=== PATIENT | male | born 1990 | race Caucasian/White ===

== ENCOUNTER → 2018-05-17 | Outpatient (CLI) | payer OTHER ==
[~2018-05-17] MED LIST: GADOBENATE DIMEGLUMINE 1 ML IV ONE; IOPAMIDOL 300 MG/ML 15ML VIAL IT ONE; LIDOCAINE HCL 2% LOCAL 20 ML VIAL ONE
--- NOTE | 2018-05-17 11:38 | Diagnostic Imaging Report ---
TECHNIQUE: Magnetic resonance arthrogram of the right SHOULDER was performed after inta-articular injected contrast. COMPARISON: None available. HISTORY: Pain FINDINGS: MUSCLES AND TENDONS: Rotator Cuff: Tendons: Small interstitial tear of the anterior supraspinatus axial image 17 series 3. Muscles: No focal muscle atrophy. Biceps Tendon: The long head of the biceps tendon is intact and within the intertubercular groove. GLENOHUMERAL JOINT: Glenoid Labrum: No discrete labral tear. In the anterosuperior quadrant a sublabral foramen. Articular Cartilage: No focal defect. AC JOINT AND ACROMION: No hypertrophic degenerative changes of the acromioclavicular joint. The acromion is unremarkable. BONE: Cystic change at the rotator cuff insertion of the posterior humerus. No acute fracture. SOFT TISSUES: Otherwise, the soft tissues appear unremarkable. IMPRESSION: Focal interstitial tear anterior supraspinatus tendon at the humeral insertion. Intact labrum. Signed by: Dr. Gregg Tejada M.D. on 05/17/2018 11:35 AM
--- NOTE | 2018-05-17 14:19 | Diagnostic Imaging Report ---
PROCEDURE:INJECTION ARTHROGRAM SHOULDER COMPARISON:None. INDICATIONS:Shoulder pain; possible rotator cuff tear FINDINGS:Local anesthesia was obtained with 1% Xylocaine after sterile preparation. Under fluoroscopic guidance a 22 gauge spinal needle was placed into the glenohumeral space. A small amount of Isovue-300 M was injected confirming the needle in the joint space. Two images were performed. Following this approximately 8 cc of a mixture of Multihance and normal saline was injected. CONCLUSION:Successful fluoroscopy guided right shoulder arthrogram prior to MRI. Anuel Ovalle D.O. Dictated by: Anuel Ovalle D.O. on 05/17/2018 at 14:23 Electronically approved by: Anuel Ovalle D.O. on 05/17/2018 at 14:23
== END ==
LOC: DX 07:51
PROVIDERS: ATTEND Specialist
DX: S46.011A Strain of muscle(s) and tendon(s) of the rotator cuff of right shoulder, initial encounter (principal)
CPT/HCPCS: 23350; 73222; 77002; J2001; Q9967